=== PATIENT | male | born 1975 | race Caucasian/White ===

== ENCOUNTER 2023-06-27 19:36 | Emergency (ER) | payer OTHER ==
[~2023-06-27] VITALS: Ht 170.2 cm; Wt 87.1 kg
[2023-06-27 19:52] VITALS: BP 142/96; PULSE 100; RESP 18; TEMP 97.5; O2SAT 98
[2023-06-28] MEDS ORDERED: TRAM50TA3 PO (01:04)
[2023-06-28] MEDS: MORPHINE SULFATE 4 MG/ML SYR IM ONE (01:11)
[2023-06-28 01:15] VITALS: BP 121/89; PULSE 89; RESP 17; TEMP 98; O2SAT 99
== END 2023-06-28 01:15 | disposition home or self-care (01) ==
LOC: MED 19:36
DX: K40.90 Unilateral inguinal hernia, without obstruction or gangrene, not specified as recurrent (principal)
CPT/HCPCS: 81002; 96372; 99283; J2270